=== PATIENT | female | born 1950 | race Caucasian/White ===

== ENCOUNTER 2017-02-21 09:08 | Emergency (ER) | payer MEDICARE, BC ==
[~2017-02-21 09:08] MED LIST: ASPIR-LOW81 MG PO; ATENOLOL100 MG PO; BRILINTA90 MG PO; CRANBERRY500 M3 PO; LEVOTHYROXINE75 MCG PO; LIPITOR DPS40 MG PO; NORVASC5 MG PO; PREVACID15 MG PO; SUPER B COMPLE150 MG PO; ULTRAM DPS50 MG PO; VITAMIN A10000 UNI1 PO; VITAMIN D31000 UNIT PO; VITAMIN E400 UNI3 PO; ZESTRIL DPS5 MG PO
--- NOTE | 2017-02-23 08:16 | ER ---
ADMIT: 02/21/2017 RM/LOC: ER [facility] MR#: [id number] [id number] [address]LE[address] [place] [address] Emergency Room Report SEX: F AGE: 66 : 1950 DATE: 02/21/2017 PRIMARY CARE: Dr. Newman. CHIEF COMPLAINT: Toothache and nausea. HISTORY OF PRESENT ILLNESS: A 66-year-old female, presents with history of poor dentition. She was at dental clinic earlier this year where she was treated for an infection for the similar tooth. She states the pain is so bad. She is having nausea secondary to pain and also, which she believes to be the tramadol she is taking for the pain. Primarily, complains of pain about one tooth where she has some exposed root, worse with hot and cold, better with the tramadol, however the nausea is very debilitating at this point. She is to have her teeth pulled later this May, however she is not able to have this done until then as she is on blood thinner secondary to stents that were placed within the last year. PAST MEDICAL HISTORY: Coronary artery disease status post stent, diabetes, hypertension, and hypothyroidism. ALLERGIES: SHE DOES HAVE MULTIPLE ALLERGIES TO MORPHINE, SULFA, CODEINE, AND CLINDAMYCIN. COURSE IN THE EMERGENCY ROOM: GENERAL: The patient was seen and examined. Afebrile and nontoxic. No acute distress. NECK: Soft and supple. No lymphadenopathy. No tenderness to palpation. Mouth and throat, she has progressive gum loss about tooth #27 with exposure of the tooth root, tenderness to palpation, no obvious abscess about the tooth. Overall, very poor dentition. Pharynx is nonerythematous. No tonsillar exudates or swelling. CHEST: Nontender. Breath sounds are equal bilaterally. ABDOMEN: Soft and nontender. Did give her 4 mg Zofran ODT for nausea. Did perform dental nerve block with bupivacaine. Pain was improved. IMPRESSION: ADMIT: 02/21/2017 RM/LOC: [facility] MR#: [id number] [id number] [address]LE[address] [place] [id number] Emergency Room Report SEX: F AGE: 66 : 1950 1. Toothache. 2. Nausea. 3. Coronary artery disease status post stents, currently on Brilinta. DISPOSITION: The patient was discharged. I will refill her tramadol until she can see her primary care provider. 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 Continue all of her home medications. Follow up with her primary care provider with any worsening signs or symptoms. Questions sought and answered to the best of my ability and the patient's satisfaction. Discharged in stable condition. BENIGNO Marks / Giovani Delacruz MD / lyudmila JOB #: [id number] CC: Giovani Delacruz MD, Attending Physician
== END 2017-02-21 10:40 | disposition home or self-care (01) ==
LOC: ER 09:08
PROC: 3E0T3BZ Introduction of Anesthetic Agent into Peripheral Nerves and Plexi, Percutaneous Approach (ICD-10-PCS; principal; 2017-02-21)
DX: K08.89 Other specified disorders of teeth and supporting structures (principal); R11.0 Nausea; I25.10 Atherosclerotic heart disease of native coronary artery without angina pectoris; Z95.5 Presence of coronary angioplasty implant and graft; E11.9 Type 2 diabetes mellitus without complications; I10 Essential (primary) hypertension; E03.9 Hypothyroidism, unspecified; Z88.5 Allergy status to narcotic agent; Z88.0 Allergy status to penicillin; Z88.2 Allergy status to sulfonamides; Z88.6 Allergy status to analgesic agent; Z90.49 Acquired absence of other specified parts of digestive tract